=== PATIENT | female | born 1945 | race Asian ===

== ENCOUNTER 2024-10-21 19:42 | Emergency (ER) | payer MEDICARE, OTHER, SELFPAY ==
--- NOTE | ~2024-10-21 | XR_ITS ---
EXAMINATION: XR chest 1V portable COMPARISON: No comparisons available. HISTORY: dizziness FINDINGS: Chronic changes noted with superimposed bilateral small infiltrates. No pneumothorax. Heart is normal size. Mediastinal and hilar contours are within normal limits. Bony thorax no acute abnormality. Miscellaneous: None Impression: Bilateral pneumonia superimposed on chronic lung disease. Reviewed, dictated and finalized at location A. Impression: Bilateral pneumonia superimposed on chronic lung disease.
--- NOTE | 2024-10-21 20:00 | ECG_ITS ---
Test Date: 2024-10-21 20:23:47 Measurements Intervals [place] Rate: 58 P: 71 CO: 196 QRS: 39 QRSD: 88 T: 56 QT: 458 QTc: 453 Interpretive Statements SINUS BRADYCARDIA OTHERWISE NORMAL ECG No previous ECG available for comparison Electronically Signed On 10-22-2024 09:40:16 CDT by Zachary Coulter M.D.
[2024-10-21 20:01] VITALS: BP 85/48; PULSE 63; RESP 20; TEMP 36.6; O2SAT 98
[2024-10-21 20:36] LABS: Hematocrit 35.7 % (37.0-47.0); Hemoglobin 11.8 g/dL (12.0-15.0); Immature Granulocyte Percent A 0.3 % (0-0.5); Lymphocytes Absolute Auto 0.81 K/mm3 (0.9-3.2); Mean Corpuscular HGB Conc 33.1 g/dl (32-36); Mean Corpuscular Hemoglobin 30.9 pg (26-34); Mean Corpuscular Volume 93.5 fl (80-100); Nucleated Red Blood Cells Absolute Auto 0.000 K/mm3 (0.0-0.012); Nucleated Red Blood Cells Perc 0.0 % (0.0-0.2); Platelet Count Result 158 k/mm3 (150-375); Red Blood Count 3.82 M/mm3 (4.2-5.4); White Blood Count 5.7 K/mm3 (4.5-10.0)
[2024-10-21] MEDS: SODIUM CHLORIDE 0.9% IV 1,000 ML 999 ML IV CONT (20:39)
[2024-10-21 20:58] LABS: Alanine Aminotransferase 18 U/L (6-35); Albumin Level 4.2 g/dL (3.5-5.1); Alkaline Phosphatase 64 U/L (38-126); Anion Gap 11 mmol/L (4-12); Aspartate Amino Transferase 35 U/L (14-36); Bilirubin,Total 0.4 mg/dL (0.2-1.3); Blood Urea Nitrogen 21 mg/dL (7-17); Calcium 10.3 mg/dL (8.4-10.2); Carbon Dioxide 25 mmol/L (22-30); Chloride 101 mmol/L (98-107); Estimated CRCL calculation 27 ml/min; Estimated Glomerular Filt Rate 49; Glucose 115 mg/dL (65-110); Potassium 3.6 mmol/L (3.4-5.0); Sodium 137 mmol/L (137-145); Total Protein 7.8 g/dL (6.3-8.2)
--- NOTE | 2024-10-21 22:18 | ED.SYNCOPE ---
HPI - Syncope General Chief Complaint: Syncope Stated Complaint: syncope/dizziness Time Seen by Provider: 10/21/24 22:13 History of Present Illness HPI narrative: Patient is an 79-year-old female who presents emergency department this evening status post syncopal/near syncopal episode which occurred at a local store. Patient did not fall or hit her head, family member states that they were able to catch her. Patient is not from here and presents to the emergency department with family members who provide the majority of the HPI as patient does have a history of dementia. Patient is visiting from out of town and per family members, she has been doing more physical activity than she is normally used to which could be contributing to her symptoms. Patient was also noted to have a low blood pressure upon arrival with BP of 85/48 mmHg. Family member states the patient does tend to have a chronically low blood pressure. Patient denies any symptoms at this time and states that she feels great. Related Data Allergies Allergy/AdvReac Type Severity Reaction Status Date / Time No Known Allergies Allergy Verified 10/21/24 20:07 Review of Systems Review of Systems: All systems are reviewed and are negative unless stated otherwise in the HPI. Exam Narrative: General: Alert, awake, afebrile, in no acute distress. HEENT: PERRL, no rhinorrhea, no post nasal drip, oropharynx clear. Neck: Trachea midline, no JVD, no lymphadenopathy. Cardiovascular: Regular rate and rhythm, no murmurs, rubs or gallops, no peripheral edema. Respiratory: Clear to auscultation bilaterally, no tachypnea, no wheezing, no rhonchi, no rubs, no respiratory distress. Abdomen: Soft, nontender, nondistended, no rebound, no guarding, no peritoneal signs. Musculoskeletal: No joint swelling or deformity, normal muscle tone. Skin: No rashes or petechia, no signs of infection. Psychiatric: Normal behavior and judgment for situation. Neurological: Alert and oriented to person which is her baseline secondary to history of dementia. Follows all commands. No focal deficits, speech is clear and fluent. Course Vital Signs Vital signs: Vital Signs Temperature 97.8 F 10/21/24 20:01 Pulse Rate 63 10/21/24 20:01 Respiratory Rate 20 10/21/24 20:01 Blood Pressure 85/48 L 10/21/24 20:01 Pulse Oximetry 98 10/21/24 20:01 Oxygen Delivery Room Air 10/21/24 20:01 Temperature 97.8 F 10/21/24 20:01 Pulse Rate 63 10/21/24 20:01 Respiratory Rate 20 10/21/24 20:01 Blood Pressure 85/48 L 10/21/24 20:01 Pulse Oximetry 98 10/21/24 20:01 Oxygen Delivery Room Air 10/21/24 20:01 MDM - Syncope MDM Narrative Medical decision making narrative: The patient was evaluated by myself in the emergency department. History is obtained from family members present at bedside and physical exam was performed. External medical records were reviewed at this time. IV was established and pertinent tests were ordered. Patient was administered 1 L IV fluid bolus with normal saline. EKG was obtained which revealed sinus bradycardia rate of 58 beats per minute. No ST changes, T wave inversions or evidence of acute ischemia. EKG was independently interpreted by me and is currently pending official cardiology read. Laboratory results obtained revealing no acute process. Imaging studies obtained included CXR which was independently interpreted by me revealing no acute cardiopulmonary process, which is pending final radiology interpretation. Differential diagnosis considerations include dehydration, vasovagal episode, hypovolemia, acute viral syndrome, orthostatic hypotension. Comorbidities impacting this visit include none. I have evaluated and discussed social determinants of health with the patient that could potentially impact subsequent diagnosis and treatment plans. On repeat assessment of the patient, reevaluation revealed that the patient is doing well and is in no acute distress. Patient symptoms have improved since she arrived to our emergency department. Repeat vital signs were all reviewed and noted to be stable. Differential diagnosis and treatment plan were discussed with the patient at bedside. Patient agrees with discussion and after shared medical decision making agrees with discharge. All questions were answered to the patient's satisfaction. Patient will follow up with her PCP in 3-5 days. Patient was provided with strict return precautions and instructed to return to the emergency department if any new or worsening symptoms develop. The patient was discharged in stable condition. Lab Data 10/21/24 20:30 10/21/24 20:30 Labs: Lab Results 10/21/24 Range/Units 20:30 WBC 5.7 (4.5-10.0) K/mm3 RBC 3.82 L (4.2-5.4) M/mm3 Hgb 11.8 L (12.0-15.0) g/dL Hct 35.7 L (37.0-47.0) % MCV 93.5 (80-100) fl MCH 30.9 (26-34) pg MCHC 33.1 (32-36) g/dl RDW 12.5 (11.5-14.5) % Plt Count 158 (150-375) k/mm3 MPV 9.4 (7.4-10.4) fl Immature Gran % (Auto) 0.3 (0-0.5) % Neut % (Auto) 69.3 (45.5-73.1) % Lymph % (Auto) 14.1 L (18.3-44.2) % [place] % (Auto) 8.6 H (2.6-8.5) % Eos % (Auto) 7.2 H (0-4.4) % Baso % (Auto) 0.5 (0.2-1.2) % Lymph # (Auto) 0.81 L (0.9-3.2) K/mm3 [place] # (Auto) 0.5 (0.1-0.6) K/mm3 Eos # (Auto) 0.4 H (0-0.3) K/mm3 Baso # (Auto) 0.0 (0.0-0.1) K/mm3 Abs Immat Gran (auto) 0.02 (0.00-0.031) K/mm3 Absolute Neuts (auto) 4.0 (1.3-6.7) K/mm3 Absolute Nucleated RBC 0.000 (0.0-0.012) K/mm3 Nucleated RBC % 0.0 (0.0-0.2) % Sodium 137 (137-145) mmol/L Potassium 3.6 (3.4-5.0) mmol/L Chloride 101 (98-107) mmol/L Carbon Dioxide 25 (22-30) mmol/L Anion Gap 11 (4-12) mmol/L BUN 21 H (7-17) mg/dL Creatinine 1.07 H (0.7-1.0) mg/dL Estim Creat Clear Calc 27 ml/min Estimated GFR 49 L (59 - ) Glucose 115 H (65-110) mg/dL Calcium 10.3 H (8.4-10.2) mg/dL Total Bilirubin 0.4 (0.2-1.3) mg/dL AST 35 (14-36) U/L ALT 18 (6-35) U/L Alkaline Phosphatase 64 (38-126) U/L Total Protein 7.8 (6.3-8.2) g/dL Albumin 4.2 (3.5-5.1) g/dL Blood Type O Positive Antibody Screen Negative Discharge Plan Discharge Clinical Impression: Syncope due to orthostatic hypotension Patient Disposition: Home Condition: Improved Instructions: Antibiotic Form, Syncope (ED) Additional Instructions: Please follow-up with your family doctor within the next 3-5 days. Return emergency department if any new or worsening symptoms develop. Patient Language: Turkmen Follow-up/Referrals: UNKNOWN,DOCTOR [Primary Care Provider] - 3 Days Time of Disposition: 22:22
== END 2024-10-21 22:59 | disposition home or self-care (01) ==
PROVIDERS: Emergency Provider Emergency Medicine
DX: I95.1 Orthostatic hypotension (principal)
CPT/HCPCS: 36415; 71045; 80053; 85025; 86850; 86900; 86901; 93005; 96360; 99284; J7030